=== PATIENT | male | born 1945 | race Caucasian/White ===

== ENCOUNTER → 2019-11-01 | Outpatient (CLI) | payer OTHER ==
[2019-11-01 10:09] LABS: URINE BILIRUBIN NEGATIVE (Negative); URINE BLOOD NEGATIVE (Negative); URINE CLARITY CLEAR; URINE COLOR YELLOW; URINE GLUCOSE-RANDOM NEGATIVE (Negative); URINE KETONES 1+ (Negative); URINE LEUKOCYTES NEGATIVE (Negative); URINE NITRITE NEGATIVE (Negative); URINE PROTEIN NEGATIVE (Negative); URINE UROBILINOGEN 0.2 E.U./dl (0.2-1.0)
[2019-11-01 10:39] LABS: ALBUMIN 4.3 g/dL (3.4-5.0); CALCIUM 9.3 mg/dL (8.5-10.1); CREATININE 1.4 mg/dL (0.6-1.3); POTASSIUM 4.6 mmol/L (3.5-5.1); TOTAL BILIRUBIN 0.5 mg/dL (<0.1-1.0); TOTAL PROTEIN 7.8 g/dL (6.4-8.2)
--- NOTE | 2019-11-01 15:16 | 2DMMODE ---
[place] [address] 2 D/M-MODE ECHOCARDIOGRAM Name: RANDY BRIGGS [place] Room: [facility]#: [id number] Admission: 11/01/19 Attend Phys: Renan Hernandez MD Discharge: Date of : 49 Date of Service: 11/01/19 1515 Report #: [id number] THIS REPORT FOR: cc: Loli Evans Stephanie RNP Holkins, John M. MD [facility] ~ APPROVED REPORT Study performed: 11/01/2019 09:59:35 EXAM: Comprehensive 2D, Doppler, and color-flow Echocardiogram Patient Location: Out-Patient BSA: 2.15 HR: 88 bpm BP: 120/85 mmHg Other Information Study Quality: Good Indications Aortic Valve Disease 2D Dimensions IVSd: 10.94 (7-11mm) LVOT Diam: 20.43 (18-24mm) LVDd: 44.28 mm PWd: 8.94 (7-11mm) Ascending Ao: 30.39 (22-36mm) LVDs: 25.53 (25-40mm) Aortic Root: 27.36 mm Volumes Left Atrial Volume (Systole) LA ESV Index: 11.50 mL/m2 Aortic Valve AoV Peak Merlin.: 1.92 m/s AO Peak Gr.: 14.73 mmHg LVOT Max P.19 mmHg AO Mean Gr.: 8.71 mmHg LVOT Mean P.43 mmHg LVOT Max V: 0.89 m/s AO V2 VTI: 30.09 cm LVOT Mean V: 0.55 m/s GASPER (VTI): 1.50 cm2 LVOT V1 VTI: 13.82 cm Mitral Valve E/A Ratio: 0.54 [place] [address] 2 D/M-MODE ECHOCARDIOGRAM Name: RANDY BRIGGS Room: [facility]#: [id number] Admission: 11/01/19 Attend Phys: Renan Hernandez MD Discharge: Date of : 49 Date of Service: 11/01/19 1515 Report #: [id number] MV Decel. Time: 333.58 ms MV E Max Merlin.: 0.47 m/s MV PHT: 96.74 ms MVA (PHT): 2.27 cm2 TDI E/Lateral E': 5.88 E/Medial E': 7.83 Medial E' Merlin.: 0.06 m/s Lateral E' Merlin.: 0.08 m/s Pulmonary Valve PV Peak Merlin.: 0.79 m/s PV Peak Gr.: 2.49 mmHg Tricuspid Valve RAP Estimate: 5.00 mmHg TR Peak Gr.: 14.17 mmHg RVSP: 19.17 mmHg PA Pressure: 19.17 mmHg Left Ventricle The left ventricle is normal size. There is normal LV segmental wall motion. There is normal left ventricular wall thickness. Left ventricular systolic function is normal. The left ventricular ejection fraction is within the normal range. LVEF is 55-60%. Grade I - abnormal relaxation pattern. Right Ventricle The right ventricle is normal size. The right ventricular systolic function is normal. Atria The left atrium size is normal. The right atrium size is normal. Aortic Valve Aortic valve is mildly calcified. No aortic regurgitation is present. Mild aortic stenosis. Mitral Valve The mitral valve is normal in structure. There is no mitral valve regurgitation noted. No evidence of mitral valve stenosis. Tricuspid Valve The tricuspid valve is normal in structure. Trace tricuspid regurgitation[place] [address] 2 D/M-MODE ECHOCARDIOGRAM Name: RANDY BRIGGS Room: [facility]#: [id number] Admission: 11/01/19 Attend Phys: Renan Hernandez MD Discharge: Date of : 49 Date of Service: 11/01/19 1515 Report #: [id number] The pulmonary valve is normal in structure. There is no pulmonic valvular regurgitation. Great Vessels The aortic root is normal in size. IVC is normal in size and collapses >50% with inspiration. Pericardium There is no pericardial effusion. <Conclusion> The left ventricle is normal size. There is normal left ventricular wall thickness. Left ventricular systolic function is normal. The left ventricular ejection fraction is within the normal range. LVEF is 55-60%. Grade I - abnormal relaxation pattern. The right ventricle is normal size. Aortic valve is mildly calcified. No aortic regurgitation is present. Mild aortic stenosis. The mitral valve is normal in structure. The tricuspid valve is normal in structure. IVC is normal in size and collapses >50% with inspiration. There is no pericardial effusion. There is normal LV segmental wall motion. <ELECTRONICALLY SIGNED> By: Margarito Rodriguez MD, FACC 11/01/19 1515 1515 1515 Margarito Rodriguez MD, FACC /INF
== END ==
LOC: M.CRD 09:38
PROVIDERS: ATTEND Orthopaedic Surgery
DX: I35.0 Nonrheumatic aortic (valve) stenosis (principal); I35.8 Other nonrheumatic aortic valve disorders